=== PATIENT | male | born 1985 | race Caucasian/White ===

== ENCOUNTER 2018-08-25 19:41 | Emergency (ER) | payer OTHER ==
[~2018-08-25] VITALS: Ht 175.3 cm; Wt 82.0 kg
[2018-08-25 19:46] VITALS: BP 104/73
[2018-08-25] MEDS ORDERED: SODIUM CHLORIDE 0.9% 1,000ML IVBOLUS ONE (20:30)
== END 2018-08-25 22:04 | disposition home or self-care (01) ==
LOC: ED 21:58
DX: F11.229 Opioid dependence with intoxication, unspecified (principal); G89.11 Acute pain due to trauma; M25.512 Pain in left shoulder; Z91.013 Allergy to seafood; W18.39XA Other fall on same level, initial encounter; Y93.89 Activity, other specified; Y92.89 Other specified places as the place of occurrence of the external cause; Y99.8 Other external cause status
CPT/HCPCS: 73030; 99284; J7030